=== PATIENT | male | born 1945 | race Asian ===

== ENCOUNTER 2022-02-25 11:02 | Inpatient (IN) | payer MEDICARE, OTHER ==
[~2022-02-25] VITALS: Ht 165.1 cm; Wt 72.6 kg
[2022-02-25] MEDS ORDERED: IV NORMAL SALINE 500 ML BAG IV ONE ×2 (11:15→14:15)
[2022-02-25] MEDS ORDERED: PIPERACILLIN SODIUM/TAZOBACTAM 3.375 G in IV DEXTROSE 5% 50 ML IV ONE (11:15)
[2022-02-25] MEDS ORDERED: IBUPROFEN 600 MG TABLET PO ONE (11:15)
[2022-02-25] MEDS ORDERED: VANCOMYCIN IV 1,000 MG in IV DEXTROSE 5% 250 ML IV ONE (11:15)
[2022-02-25] MEDS ORDERED: PIPERACILLIN/TAZOBACTAM/D5W 50 ML IV ONE (11:24)
[2022-02-25] MEDS ORDERED: VANCOMYCIN IV 200 ML ONE (11:24)
[2022-02-25] MEDS ORDERED: IBUPROFEN 800 MG TABLET ONE (11:24)
[2022-02-25 11:49] LABS: CARBON DIOXIDE 23 mmol/L (21-32); CHLORIDE 100 mmol/L (98-107); CREATININE 5.5 mg/dL (0.6-1.3); GLUCOSE 127 mg/dL (74-106); POTASSIUM 3.8 mmol/L (3.5-5.1); UREA NITROGEN, BLOOD 50 mg/dL (7-18)
[2022-02-25 12:02] LABS: ALANINE AMINOTRANSFERASE 12 U/L (16-63); ALKALINE PHOSPHATASE 262 U/L (50-136); ASPARTATE AMINOTRANSFERASE 47 U/L (15-37); BILIRUBIN,DIRECT 0.9 mg/dL (0.0-0.2); BILIRUBIN,TOTAL 1.2 mg/dL (0.2-1.0); TOTAL PROTEIN, SERUM 6.5 g/dL (6.4-8.2)
[2022-02-25 12:14] LABS: HEMATOCRIT 22.2 % (36.7-47.1); MEAN CORPUSCULAR HEMOGLOBIN 32.4 uug (23.8-33.4); PLATELET COUNT (AUTO) 110 K/uL (152-348)
--- NOTE | 2022-02-25 12:24 | NUR ---
urine obtained via straight catheterization, tolerated. urine sent to lab
[2022-02-25 12:43] LABS: ABG BASE EXCESS 0.1 mmol/L; ABG HCO3 24.7 mmol/L; ABG PCO2 40.1 mmHg (35.0-45.0); ABG PH 7.408 (7.350-7.450); ABG PO2 128.6 mmHg (75.0-100.0); ABG SITE LEFT RADIAL; ABG TOTAL HEMOGLOBIN 7.2 G/dL (13.5-18.0); MetHb 0.3 % (0.0-1.5); O2Hb 96.7 % (94.0-97.0); VENT MODE Nasal Cannula
[2022-02-25 12:47] LABS: *BLOOD, URINE 1+ (NEGATIVE); *CLARITY,URINE CLEAR (CLEAR); *COLOR,URINE YELLOW (YELLOW); *KETONES,URINE TRACE (NEGATIVE); *UROBILINOGEN,URINE 0.2 E.U./dl (NORMAL); LEUKOCYTE ESTERASE ,URINE NEGATIVE (NEGATIVE); NITRITE, URINE NEGATIVE (NEGATIVE); PH,URINE 5.5 (5.0-8.0); UGLUCOSE TRACE (NEGATIVE)
[2022-02-25 12:50] LABS: *BILIRUBIN,URIN 1+ (NEGATIVE)
[2022-02-25] MEDS ORDERED: ACETAMINOPHEN ES 500 MG TABLET PO ONE (13:30)
[2022-02-25] MEDS ORDERED: ACETAMINOPHEN ES 500 MG TABLET ONE (13:38)
[2022-02-25] MEDS ORDERED: ONDANSETRON 4 MG/2 ML VIAL IV PRN (14:30)
[2022-02-25] MEDS ORDERED: ACETAMINOPHEN 650 MG SUPP.RECT RC PRN (14:30)
[2022-02-25 14:48] LABS: BACTERIA,URINE FEW /HPF (NONE SEEN); SQUAMOUS EPITHELIAL CELL,UR FEW /HPF (NONE SEEN); WBC,URINE 0-3 /HPF (0-3)
[2022-02-25] MEDS ORDERED: NOREPINEPHRINE BITARTRATE 32 MG in IV NORMAL SALINE 218 ML IV PRN (15:00)
--- NOTE | 2022-02-25 15:19 | NUR ---
patient hypotensive, MD aware. orders for levophed to titrate. i am on orientation, we are severely short staffed, charge nurse is aware. No ICU nurse available to monitor patient.
[2022-02-25] MEDS ORDERED: LIDOCAINE 4% TP (15:48)
[2022-02-25] MEDS ORDERED: LEVO125T8 PO (15:48)
[2022-02-25] MEDS ORDERED: SEVE800T8 PO (15:48)
[2022-02-25] MEDS ORDERED: ACET-2154 PO (15:48)
[2022-02-25] MEDS ORDERED: FAMO-132 PO (15:48)
[2022-02-25] MEDS ORDERED: MELA3TAB41 PO (15:48)
[2022-02-25] MEDS ORDERED: POLY17PO4 PO (15:48)
[2022-02-25] MEDS ORDERED: HYDR-3972 PO (15:48)
[2022-02-25] MEDS ORDERED: INSU100V39 SQ (15:48)
[2022-02-25] MEDS ORDERED: PROP150T2 PO (15:48)
[2022-02-25] MEDS ORDERED: NEPRO PO (15:48)
[2022-02-25] MEDS ORDERED: CYCL5TAB PO (15:48)
[2022-02-25] MEDS ORDERED: HYDROCORTISONE PO (15:48)
[2022-02-25] MEDS ORDERED: ESCI5TAB PO (15:48)
[2022-02-25] MEDS ORDERED: PREG50CA PO (15:48)
[2022-02-25] MEDS ORDERED: ALPR1TAB7 PO (15:48)
[2022-02-25] MEDS ORDERED: AMIN30LI2 PO (15:48)
[2022-02-25] MEDS ORDERED: APIX2.5T PO (15:48)
--- NOTE | 2022-02-25 16:00 | NUR ---
pt observed to have pressure ulcer on right buttocks.
--- NOTE | 2022-02-25 16:09 | NUR ---
picc line inserted by picc nurse, stat cxr ordered and radiology called.
--- NOTE | 2022-02-25 16:54 | NUR ---
picc line verified and infusion running through picc line, tolerating. monitoring BP.
[2022-02-25 19:00] VITALS: BP 123/57
--- NOTE | 2022-02-25 19:20 | NUR ---
INCONT OF STOOL, RENDER PERICARE, AVERY LOOSE STOOL BROWNISH IN COLOR. SKIN TEAR TO SACRUM .1 CM X.2 CM .REPOSITION Q 2 HOURS AND SKIN KEPT WARM AND DRY.
--- NOTE | 2022-02-25 19:30 | NUR ---
OBTAINED REPORT FROM OUT GOING RN, PATIENT LETHARGIC, EASILY ARISE, CONFUSED TO PLACE AND TIME. VSS, NOT ON LEVOPHED AT THIS TIME, RENDER ORAL CARE AND VS Q 1 HOUR.RIGHT UA AV FISTULA POSITIVE BRUIT AND THRILL., B/P CUFF LEFT LE AND LEFT UPPER ARM WITH TRIPLE LUMEN PICC. O2 VIA N/C AT 2L/MIN.
--- NOTE | 2022-02-25 19:46 | NUR ---
hand off report given to Ana Paula VEE
[2022-02-25 20:00] VITALS: BP 151/70
[2022-02-25] MEDS ORDERED: PIPERACILLIN/TAZOBACTAM/D5W 50 ML ONE (20:25)
[2022-02-25] MEDS: PIPERACILLIN/TAZO 2.25 G in IV DEXTROSE 5% 50 ML IV SCH (20:30)
[2022-02-25 21:00] VITALS: BP 158/70
[2022-02-25 22:00] VITALS: BP 153/67
[2022-02-25] MEDS ORDERED: PIPERACILLIN SODIUM/TAZOBACTAM 3.375 G in IV DEXTROSE 5% 50 ML IV SCH (22:00)
--- NOTE | 2022-02-25 22:00 | NUR ---
TRANSFERRED FROM ED RM 5 TO ED RM 1 B. PER CM SR, NO DISTRESS NOTED, MAINTAIN SAFE ENVIRONMENT.
[2022-02-25 23:00] VITALS: BP 155/63
[2022-02-26] VITALS (10 sets, daily range): BP systolic 103–170; BP diastolic 38–70
--- NOTE | 2022-02-26 02:00 | NUR ---
AWAITING REGISTRATION TO TRANSITION PATIENT FOR DOCUMENTATION. ADMITTED SINCE 1436.
[2022-02-26] MEDS: PIPERACILLIN/TAZO 2.25 G in IV DEXTROSE 5% 50 ML IV SCH ×3 (03:52→21:45)
--- NOTE | 2022-02-26 04:00 | NUR ---
NO DISTRESS NOTED, MORE AWAKE AND ASKING IF HE WILL HAVE DIALYSIS TODAY. REASSURANCE PROVIDED.
--- NOTE | 2022-02-26 04:30 | NUR ---
CONTINUED ON ZOSYN IVPB.
--- NOTE | 2022-02-26 06:00 | NUR ---
BM LOOSE STOOL, RENDER PERICARE AND AM CARE PROVIDED, RENDER ORAL CARE AND PATIENT ASKING FOR BREAKFAST AND STATED THAT HE HAS NOT EATEN X 2 DAYS.
--- NOTE | 2022-02-26 07:15 | NUR ---
reiceved patient in stable condition from Ana Paula. pt no longer on levo drip, although is still CCU pt. spoke to regarding status and possibly downgrading, to see pt first. no new orders at this time.
[2022-02-26 07:30] LABS: HEMATOCRIT 21.2 % (36.7-47.1); MEAN CORPUSCULAR HEMOGLOBIN 32.5 uug (23.8-33.4); MEAN CORPUSCULAR VOLUME 99.1 fL (73.0-96.2); PLATELET COUNT (AUTO) 115 K/uL (152-348)
--- NOTE | 2022-02-26 07:30 | NUR ---
REPORT GIVEN TO INCOMING RN, NOTIFIED THAT PATIENT IS REQUESTING DIALYSIS TODAY, NEEDS AIR MATTRESS, NUTRITIONAL, DIETARY, AND WOUND CONSULT.VSS WITHOUT PRESSORS.
[2022-02-26 07:43] LABS: CARBON DIOXIDE 24 mmol/L (21-32); CHLORIDE 100 mmol/L (98-107); CREATININE 6.2 mg/dL (0.6-1.3); GLUCOSE 191 mg/dL (74-106); POTASSIUM 4.8 mmol/L (3.5-5.1); UREA NITROGEN, BLOOD 61 mg/dL (7-18)
[2022-02-26 07:49] LABS: ALANINE AMINOTRANSFERASE 16 U/L (16-63); ALKALINE PHOSPHATASE 200 U/L (50-136); ASPARTATE AMINOTRANSFERASE 32 U/L (15-37); BILIRUBIN,TOTAL 0.8 mg/dL (0.2-1.0); TOTAL PROTEIN, SERUM 6.3 g/dL (6.4-8.2)
--- NOTE | 2022-02-26 08:00 | NUR ---
Pt requires dialysis, i called office x4 and left voicemails x2. waiting for a call back. Charge nurse aware.
[2022-02-26 08:11] LABS: MAGNESIUM 2.1 mg/dL (1.8-2.4); PHOSPHOROUS 6.1 mg/dL (2.5-4.9); VANCOMYCIN,RANDOM 23.9 ug/mL (18.0-26.0)
--- NOTE | 2022-02-26 08:11 | NUR ---
spoke to and informed her of pt hgb/hct. no new orders.
[2022-02-26 08:20] LABS: THYROID STIMULATING HORMONE 2.542 mIU/mL (0.358-3.740)
[2022-02-26] MEDS ORDERED: PANTOPRAZOLE SODIUM 40 MG VIAL ONE (09:05)
[2022-02-26] MEDS: PANTOPRAZOLE SODIUM 40 MG VIAL IV SCH (09:11)
[2022-02-26] MEDS ORDERED: EPOETIN ALFA 10,000 UNITS/ML VIAL SQ ONE (09:30)
[2022-02-26] MEDS ORDERED: EPOETIN ALFA-EPBX 10,000 UNIT/ML VIAL SQ ONE (09:45)
--- NOTE | 2022-02-26 11:12 | NUR ---
spoke to [phone] (cell) regarding his patient who is a dialysis pt ESRD, asked if there had been arangements made to dialize pt today. stated he has already called in for dialysis and requsting i call him to follow up for timing in the next few hours.
--- NOTE | 2022-02-26 11:38 | NUR ---
paged for orders. waiting for call back. pt will need type/cross and chemistry for dialysis that will take place later today.
[2022-02-26] MEDS ORDERED: PIPERACILLIN/TAZOBACTAM/D5W 50 ML ONE ×2 (11:42→21:26)
[2022-02-26 13:00] LABS: CARBON DIOXIDE 24 mmol/L (21-32); CHLORIDE 101 mmol/L (98-107); CREATININE 6.3 mg/dL (0.6-1.3); GLUCOSE 157 mg/dL (74-106); POTASSIUM 4.8 mmol/L (3.5-5.1); UREA NITROGEN, BLOOD 63 mg/dL (7-18)
--- NOTE | 2022-02-26 13:00 | NUR ---
downgraded patient to telemetry. stable VS.
--- NOTE | 2022-02-26 13:00 | NUR ---
Spoke to regarding pt's dialysis- MD stated he messaged/spoke to dialysis and will be placing the order when he has access to a computer. Charge nurse made aware.
--- NOTE | 2022-02-26 14:18 | NUR ---
Da dialysis nurse called, states he will send a dialysis nurse from [facility] 1-2hrs. Charge nurse made aware.
[2022-02-26] MEDS ORDERED: Medication Not On Formulary EA (Cyclobenzaprine Hcl 5 MG) PO PRN (17:15)
[2022-02-26] MEDS: PROPAFENONE HCL 150 MG TABLET PO SCH (17:45)
[2022-02-26] MEDS: ALPRAZOLAM 0.5 MG TABLET PO SCH (18:31)
[2022-02-26] MEDS ORDERED: DEXTROSE 50% 50 ML DISP.SYRIN IV PRN (19:00)
--- NOTE | 2022-02-26 19:46 | NUR ---
report given to MARIUSZ Goss. pt in stable condition.
--- NOTE | 2022-02-26 20:48 | NUR ---
REPORT GIVEN TO DWAYNE VEE RECEIVING PATIENT ON TELE. VSS.NO DISTRESS NOTED.
[2022-02-26] MEDS ORDERED: Medication Not On Formulary EA (Escitalopram Oxalate (Lexapro) 1 TAB) PO SCH (21:00)
--- NOTE | 2022-02-26 21:05 | NUR ---
Patient was transferred from ER to telemetry unit Room 305. Admitted yesterday at the ER. Patient is a 76 years old male with Dx of Septic Shock and Respiratory failure. patient AAOx4. In no apparent distress. Denies any SOB. On O2 at 2LPm via NC in place. O2 sat at 96%. Dialysis site on right upper arm with dressing intact. PICC line on left upper and PIV on left hand intact and patent. NS on tele with HR of 84/min. Complain of neck pain and resolve with positioning. Other assessment done. Plan of care initiated. Safety measure initiated and call light within reached. Due meds given and taken. Continue to monitor.
--- NOTE | 2022-02-26 21:08 | NUR ---
Transported to 3rd floor via hospital bed.
[2022-02-26] MEDS: ESCITALOPRAM OXALATE 10 MG TABLET PO SCH (21:46)
[2022-02-26] MEDS: PREGABALIN 50 MG CAPSULE PO SCH (21:46)
[2022-02-26] MEDS: MELATONIN 3 MG TABLET PO SCH (21:46)
[2022-02-26] MEDS: BLOOD SUGAR DIAGNOSTIC 1 EACH STRIP VI SCH (21:55)
[2022-02-26] MEDS ORDERED: SODIUM BICARBONATE 8.4% 50 MEQ/50 ML DISP.SYRIN IV ONE (22:15)
[2022-02-27] VITALS (8 sets, daily range): BP systolic 90–159; BP diastolic 37–49
[2022-02-27] MEDS: ACETAMINOPHEN 325 MG TABLET PO PRN ×2 (01:18→12:53)
[2022-02-27] MEDS: PIPERACILLIN/TAZO 2.25 G in IV DEXTROSE 5% 50 ML IV SCH ×3 (04:02→20:17)
--- NOTE | 2022-02-27 05:26 | NUR ---
Patient slept well since admission. With occasional anxiety noted. Able to calm patient down with reassurance. No adverse effect noted from IV antibiotic. NSR on tele with HR of 93/min. Needs attended to and met. Safety measure maintained and call light within reached.
[2022-02-27] MEDS: LEVOTHYROXINE SODIUM 125 MCG TABLET PO SCH (06:01)
[2022-02-27] MEDS: BLOOD SUGAR DIAGNOSTIC 1 EACH STRIP VI SCH ×4 (06:32→20:18)
[2022-02-27 07:12] LABS: MEAN CORPUSCULAR HEMOGLOBIN 32.3 uug (23.8-33.4); MEAN CORPUSCULAR VOLUME 97.2 fL (73.0-96.2); PLATELET COUNT (AUTO) 120 K/uL (152-348)
[2022-02-27 07:21] LABS: ALANINE AMINOTRANSFERASE 17 U/L (16-63); ALKALINE PHOSPHATASE 144 U/L (50-136); ASPARTATE AMINOTRANSFERASE 23 U/L (15-37); BILIRUBIN,TOTAL 0.6 mg/dL (0.2-1.0); CARBON DIOXIDE 29 mmol/L (21-32); CHLORIDE 100 mmol/L (98-107); CREATININE 4.8 mg/dL (0.6-1.3); GLUCOSE 136 mg/dL (74-106); MAGNESIUM 1.9 mg/dL (1.8-2.4); PHOSPHOROUS 3.7 mg/dL (2.5-4.9); POTASSIUM 3.7 mmol/L (3.5-5.1); TOTAL PROTEIN, SERUM 5.9 g/dL (6.4-8.2); UREA NITROGEN, BLOOD 41 mg/dL (7-18)
--- NOTE | 2022-02-27 07:30 | NUR ---
Critical lab shirin reported. hgb 6.2 hct 18.8. notified. Addendum: 02/27/22 at 0909 by KENYETTA BYRD RN 0736- order BT 1 prbc. consent signed. prbc ordered. will f/u [facility].
[2022-02-27 07:34] LABS: HEMATOCRIT 18.8 % (36.7-47.1)
[2022-02-27] MEDS: ALPRAZOLAM 0.5 MG TABLET PO SCH ×3 (09:00→18:46)
[2022-02-27] MEDS: PROTEIN SUPPLEMENT (PROSTAT) 30 ML LIQUID PO SCH ×3 (09:00→18:46)
[2022-02-27] MEDS: PROPAFENONE HCL 150 MG TABLET PO SCH ×3 (09:00→20:18)
[2022-02-27] MEDS ORDERED: Medication Not On Formulary EA (Amino Acids/Protein Hydrolys (Pro-Stat Liquid) 30 ML) PO SCH (09:00)
[2022-02-27] MEDS: PANTOPRAZOLE SODIUM 40 MG VIAL IV SCH ×2 (09:00→12:51)
--- NOTE | 2022-02-27 09:00 | NUR ---
BT started with dialysis Addendum: 02/27/22 at 1306 by KENYETTA BYRD RN MORNING MED HELD. WILL GIVE AFTER DIALYSIS
--- NOTE | 2022-02-27 10:00 | NUR ---
BT completed. Pt tolerated BT well. No adverse reaction noted
[2022-02-27] MEDS: SEVELAMER CARBONATE 800 MG TABLET PO SCH ×2 (12:00→18:46)
[2022-02-27] MEDS: GLUCERNA SHAKE 237 ML CAN PO SCH ×2 (12:00→12:52)
--- NOTE | 2022-02-27 12:31 | NUR ---
WOUND CARE CONSULT: PT PRESENTS WITH SACRAL PRESSURE ULCER, PRESENT ON ADMISSION. NO NECROTIC TISSUE OR SIGN OF INFECTION NOTED. RECOMMENDATIONS MADE FOR WOUND CARE AND SKIN PROTECTION. DISCUSSED WITH NURSING STAFF. IN AGREEMENT WITH PLAN OF CARE. Addendum: 02/27/22 at 1233 by BRYSON DE SOUZA RN Amended: Links added.
[2022-02-27] MEDS ORDERED: VANCOMYCIN IV 500 MG in IV DEXTROSE 5% 100 ML IV ONE (14:00)
[2022-02-27] MEDS: INSULIN REGULAR, HUMAN 300 UNIT/3 ML VIAL SQ PRN ×2 (19:20→20:19)
--- NOTE | 2022-02-27 19:38 | NUR ---
Received patient lying comfortably in bed. In no apparent distress. No complain of pain or SOB. O2 at 2LPm via NC in place. NSR on tele with HR of80/min. PICC line on JACKIE and IV on left hand intact and patent. Needs assessed and attended to.Contact precaution in place. Safety measure initiated and call light within reached.
[2022-02-27] MEDS: ESCITALOPRAM OXALATE 10 MG TABLET PO SCH (20:17)
[2022-02-27] MEDS: MELATONIN 3 MG TABLET PO SCH (20:17)
[2022-02-27] MEDS: PREGABALIN 50 MG CAPSULE PO SCH (20:18)
[2022-02-28 00:14] VITALS: BP 96/46
[2022-02-28 04:20] VITALS: BP 127/55
[2022-02-28] MEDS: PIPERACILLIN/TAZO 2.25 G in IV DEXTROSE 5% 50 ML IV SCH (04:30)
--- NOTE | 2022-02-28 05:05 | NUR ---
No adverse effect noted from IV antibiotic. NSR on tele with HR of 74/min. Needs attended to and met. Safety measure maintained and call light within reached.
[2022-02-28] MEDS: LEVOTHYROXINE SODIUM 125 MCG TABLET PO SCH (06:04)
[2022-02-28 06:37] LABS: MEAN CORPUSCULAR HEMOGLOBIN 32.2 uug (23.8-33.4); PLATELET COUNT (AUTO) 123 K/uL (152-348)
[2022-02-28] MEDS ORDERED: VANCOMYCIN IV 500 MG in IV DEXTROSE 5% 100 ML IV PRN (06:45)
[2022-02-28 06:46] LABS: HEMATOCRIT 20.8 % (36.7-47.1)
[2022-02-28 06:48] LABS: CARBON DIOXIDE 29 mmol/L (21-32); CHLORIDE 100 mmol/L (98-107); CREATININE 4.3 mg/dL (0.6-1.3); GLUCOSE 105 mg/dL (74-106); MAGNESIUM 1.9 mg/dL (1.8-2.4); POTASSIUM 3.5 mmol/L (3.5-5.1); UREA NITROGEN, BLOOD 34 mg/dL (7-18); VANCOMYCIN,RANDOM 24.8 ug/mL (18.0-26.0)
[2022-02-28] MEDS: BLOOD SUGAR DIAGNOSTIC 1 EACH STRIP VI SCH ×4 (06:49→20:45)
--- NOTE | 2022-02-28 07:00 | NUR ---
CRITICAL LAB VALUE NOTED HGB 7.0. NOTIFIED
[2022-02-28 07:06] LABS: HEPATITIS B SURFACE AG Negative (Negative)
[2022-02-28] MEDS: PROTEIN SUPPLEMENT (PROSTAT) 30 ML LIQUID PO SCH ×2 (09:27→17:00)
[2022-02-28] MEDS: GLUCERNA SHAKE 237 ML CAN PO SCH (09:27)
[2022-02-28] MEDS: PROPAFENONE HCL 150 MG TABLET PO SCH ×2 (09:27→20:36)
[2022-02-28] MEDS: PANTOPRAZOLE SODIUM 40 MG VIAL IV SCH (09:27)
[2022-02-28] MEDS: SEVELAMER CARBONATE 800 MG TABLET PO SCH ×3 (09:27→18:12)
[2022-02-28] MEDS: ALPRAZOLAM 0.5 MG TABLET PO SCH ×2 (09:27→18:12)
[2022-02-28] MEDS ORDERED: JEVITY 1.2 1000 ML LIQUID GT PRN (10:45)
[2022-02-28 11:56] VITALS: BP 128/59
[2022-02-28] MEDS: INSULIN REGULAR, HUMAN 300 UNIT/3 ML VIAL SQ PRN (13:24)
--- NOTE | 2022-02-28 16:00 | NUR ---
DISTENDED ABDOMEN NOTED. MD NOTIFIED. ORDER BHARAT HOYOSSH. Addendum: 02/28/22 at 1904 by KENYETTA BYRD RN BHARAT CHOUDHURYED DONE. HELPS PATIENT ALITTLE BIT. PT STILL HAVE DISTENDED STOMACH
[2022-02-28 16:42] VITALS: BP 161/67
--- NOTE | 2022-02-28 19:04 | NUR ---
WOUND TX DONE. CLEAN AREA, PAT DRY, HYDROGEL AND COVER W/ MEPILEX
[2022-02-28 20:22] VITALS: BP 99/44
[2022-02-28] MEDS: ESCITALOPRAM OXALATE 10 MG TABLET PO SCH (20:34)
[2022-02-28] MEDS: PREGABALIN 50 MG CAPSULE PO SCH (20:35)
[2022-02-28] MEDS: MELATONIN 3 MG TABLET PO SCH (20:36)
[2022-03-01] VITALS (7 sets, daily range): BP systolic 104–139; BP diastolic 39–71
--- NOTE | 2022-03-01 05:32 | NUR ---
Pt slept through out the night. On 1LPM/NC sating at 100%. IV intact and patent. All needs attended. No respiratory distress noted. Aspiration and safety precautions maintained. Will endorse to incoming shift.
[2022-03-01] MEDS: LEVOTHYROXINE SODIUM 125 MCG TABLET PO SCH (06:05)
[2022-03-01 06:47] LABS: MEAN CORPUSCULAR HEMOGLOBIN 32.1 uug (23.8-33.4); MEAN CORPUSCULAR VOLUME 98.4 fL (73.0-96.2); PLATELET COUNT (AUTO) 131 K/uL (152-348)
[2022-03-01 07:02] LABS: ALANINE AMINOTRANSFERASE < 6 U/L (16-63); ALKALINE PHOSPHATASE 228 U/L (50-136); ASPARTATE AMINOTRANSFERASE 12 U/L (15-37); BILIRUBIN,TOTAL 1.1 mg/dL (0.2-1.0); CARBON DIOXIDE 29 mmol/L (21-32); CHLORIDE 98 mmol/L (98-107); CREATININE 5.5 mg/dL (0.6-1.3); GLUCOSE 96 mg/dL (74-106); PHOSPHOROUS 3.5 mg/dL (2.5-4.9); POTASSIUM 3.9 mmol/L (3.5-5.1); TOTAL PROTEIN, SERUM 6.2 g/dL (6.4-8.2); UREA NITROGEN, BLOOD 47 mg/dL (7-18)
[2022-03-01 07:05] LABS: HEMATOCRIT 19.7 % (36.7-47.1)
--- NOTE | 2022-03-01 07:15 | NUR ---
Received critical lab Hgb 6.4 from [facility]. aware. Will endorse to incoming RN.
[2022-03-01] MEDS: BLOOD SUGAR DIAGNOSTIC 1 EACH STRIP VI SCH ×4 (07:31→20:45)
--- NOTE | 2022-03-01 07:45 | NUR ---
notified for critical lab. will tranfused 1 prbc per standing order
[2022-03-01] MEDS: SEVELAMER CARBONATE 800 MG TABLET PO SCH ×3 (08:00→18:04)
--- NOTE | 2022-03-01 08:30 | NUR ---
Blood transfusion started 1 prbc. will monitor Addendum: 03/01/22 at 1516 by KENYETTA BYRD RN 1030 BT ends. pt tolerated transfusion well. no adverse reaction noted. pt asleep after
[2022-03-01] MEDS: ALPRAZOLAM 0.5 MG TABLET PO SCH ×2 (09:00→17:00)
[2022-03-01] MEDS: GLUCERNA SHAKE 237 ML CAN PO SCH (09:43)
[2022-03-01] MEDS: PROTEIN SUPPLEMENT (PROSTAT) 30 ML LIQUID PO SCH ×2 (09:43→17:00)
[2022-03-01] MEDS: PANTOPRAZOLE SODIUM 40 MG TABLET.DR PO SCH (09:43)
[2022-03-01] MEDS: PROPAFENONE HCL 150 MG TABLET PO SCH ×2 (09:43→20:39)
[2022-03-01 10:44] LABS: VANCOMYCIN,RANDOM 21.8 ug/mL (18.0-26.0)
[2022-03-01] MEDS: INSULIN REGULAR, HUMAN 300 UNIT/3 ML VIAL SQ PRN ×3 (12:02→20:48)
--- NOTE | 2022-03-01 13:00 | NUR ---
PT TOLERATED HEMODIALYSIS WELL.
--- NOTE | 2022-03-01 16:46 | NUR ---
PT IS SCHEDULED FOR Transesophageal Echocardiogram (MONIQUE) TOMORROW AT [facility] @1200 . AMBULANCE WILL UNIT TECHNICIAN PT @ 0800. F/U WITH
--- NOTE | 2022-03-01 18:34 | NUR ---
PT ATE 50% OF LUNCH AND DINNER MEAL W/ ASSIST. PT IS MORE LETHARGIC TODAY. AO X2-3. VITALS WNL. NO ACUTE DISTRESS NOTED. NO SOB. WILL ENDORSED TO NOC SHIFT
--- NOTE | 2022-03-01 19:34 | NUR ---
Received pt. in bed AAOX1. follows commands, PICC line to LUE patent. Will continue to monitor.
[2022-03-01] MEDS: PREGABALIN 50 MG CAPSULE PO SCH (20:38)
[2022-03-01] MEDS: MELATONIN 3 MG TABLET PO SCH (20:38)
[2022-03-01] MEDS: ESCITALOPRAM OXALATE 10 MG TABLET PO SCH (20:38)
[2022-03-02 00:18] VITALS: BP 126/51
[2022-03-02] MEDS: ACETAMINOPHEN 325 MG TABLET PO PRN (03:00)
[2022-03-02] MEDS: CYCLOBENZAPRINE HCL 10 MG TABLET PO PRN (03:00)
[2022-03-02 04:20] VITALS: BP 113/48
[2022-03-02] MEDS: LEVOTHYROXINE SODIUM 125 MCG TABLET PO SCH (06:13)
[2022-03-02] MEDS: BLOOD SUGAR DIAGNOSTIC 1 EACH STRIP VI SCH ×4 (06:30→20:47)
[2022-03-02 06:47] LABS: HEMATOCRIT 23.2 % (36.7-47.1); MEAN CORPUSCULAR HEMOGLOBIN 32.8 uug (23.8-33.4); MEAN CORPUSCULAR VOLUME 96.2 fL (73.0-96.2); PLATELET COUNT (AUTO) 136 K/uL (152-348)
[2022-03-02 06:56] LABS: CARBON DIOXIDE 29 mmol/L (21-32); CHLORIDE 99 mmol/L (98-107); CREATININE 4.1 mg/dL (0.6-1.3); GLUCOSE 70 mg/dL (74-106); MAGNESIUM 1.7 mg/dL (1.8-2.4); PHOSPHOROUS 3.6 mg/dL (2.5-4.9); POTASSIUM 3.6 mmol/L (3.5-5.1); UREA NITROGEN, BLOOD 30 mg/dL (7-18); VANCOMYCIN,RANDOM 16.8 ug/mL (18.0-26.0)
[2022-03-02] MEDS: SEVELAMER CARBONATE 800 MG TABLET PO SCH ×3 (08:00→17:59)
[2022-03-02] MEDS: PANTOPRAZOLE SODIUM 40 MG TABLET.DR PO SCH (08:00)
[2022-03-02] MEDS: GLUCERNA SHAKE 237 ML CAN PO SCH (09:00)
[2022-03-02] MEDS: PROPAFENONE HCL 150 MG TABLET PO SCH ×2 (09:00→20:47)
[2022-03-02] MEDS: ALPRAZOLAM 0.5 MG TABLET PO SCH ×2 (09:00→17:59)
[2022-03-02] MEDS: PROTEIN SUPPLEMENT (PROSTAT) 30 ML LIQUID PO SCH ×2 (09:00→17:58)
--- NOTE | 2022-03-02 09:00 | NUR ---
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
[2022-03-02 10:00] VITALS: BP 100/45
--- NOTE | 2022-03-02 11:54 | NUR ---
pt still in [facility] for MONIQUE, report given to Triston VEE ICU
[2022-03-02] MEDS ORDERED: VANCOMYCIN IV 500 MG in IV DEXTROSE 5% 100 ML IV ONE (16:00)
--- NOTE | 2022-03-02 16:30 | NUR ---
received a call from Daniel VEE ICU from [facility] - will be transferring pt soon via ambulance
--- NOTE | 2022-03-02 17:30 | NUR ---
back from [facility] per amado, awake and alert oriented x2, on 2l/nasal cannula-sat at 99%, tele- a-flutter 60-70's, no distress noted, BS taken 79- dinner tray served, needs attended and met, call light within reach
[2022-03-02 17:56] VITALS: BP 107/44
--- NOTE | 2022-03-02 19:04 | NUR ---
informed Dr Fraire of rhythm a flutter- with orders- will endorse to next shift
[2022-03-02 20:00] VITALS: BP 95/40
[2022-03-02] MEDS ORDERED: DILTIAZEM HCL 60 MG TABLET PO SCH (20:00)
--- NOTE | 2022-03-02 20:00 | NUR ---
Received patient lying in bed. AAOx2. In no acute distress. Gets easily anxious, reassurance given. Controlled A Flutter on tele with HR of 72/min. PICC line on left upper arm intact and patent. Right upper arm fistula with dressing intact. Needs assessed and attended to. Isolation precaution observed. Safety measure initiated and call light within reached.
--- NOTE | 2022-03-02 20:20 | NUR ---
Informed Dr. Fraire that patient BP wqas 92/38, HR 75 and patient has a dose of Cardizem 60mg due. Awaiting for any new order.
--- NOTE | 2022-03-02 20:35 | NUR ---
Another message sent to Dr. Fraire still no answer. Informed Dr. Lee regarding BP and Cardizem order and Dr. Pickard with order to decrease Cardizem to 30 mg every 8 hrs. Order noted and will carry out.
[2022-03-02] MEDS: MELATONIN 3 MG TABLET PO SCH (20:48)
[2022-03-02] MEDS: PREGABALIN 50 MG CAPSULE PO SCH (20:48)
[2022-03-02] MEDS: ESCITALOPRAM OXALATE 10 MG TABLET PO SCH (20:48)
[2022-03-02] MEDS: INSULIN REGULAR, HUMAN 300 UNIT/3 ML VIAL SQ PRN (20:50)
[2022-03-02] MEDS: DILTIAZEM HCL 30 MG TABLET PO SCH (21:12)
[2022-03-03] VITALS: BP 100/43
[2022-03-03] MEDS: CYCLOBENZAPRINE HCL 10 MG TABLET PO PRN (00:46)
[2022-03-03 04:00] VITALS: BP 104/45
--- NOTE | 2022-03-03 05:09 | NUR ---
AAOx2. In no acute distress. Controlled A Flutter on tele with HR of 70/min. PICC line on left upper arm intact and patent. Right upper arm fistula with dressing remains intact. Needs attended to and met. Isolation precaution maintained. Turned and reposition for comfort. Safety measure maintained and call light within reached.
[2022-03-03] MEDS: ACETAMINOPHEN 325 MG TABLET PO PRN (05:44)
[2022-03-03] MEDS: DILTIAZEM HCL 30 MG TABLET PO SCH ×3 (05:44→22:01)
[2022-03-03] MEDS: LEVOTHYROXINE SODIUM 125 MCG TABLET PO SCH (06:13)
[2022-03-03 06:54] LABS: HEMATOCRIT 24.1 % (36.7-47.1); MEAN CORPUSCULAR HEMOGLOBIN 31.7 uug (23.8-33.4); MEAN CORPUSCULAR VOLUME 95.8 fL (73.0-96.2); PLATELET COUNT (AUTO) 160 K/uL (152-348)
[2022-03-03 07:08] LABS: ALANINE AMINOTRANSFERASE 13 U/L (16-63); ALKALINE PHOSPHATASE 274 U/L (50-136); ASPARTATE AMINOTRANSFERASE 21 U/L (15-37); BILIRUBIN,TOTAL 1.2 mg/dL (0.2-1.0); CARBON DIOXIDE 28 mmol/L (21-32); CHLORIDE 99 mmol/L (98-107); CREATININE 5.4 mg/dL (0.6-1.3); GLUCOSE 89 mg/dL (74-106); MAGNESIUM 1.9 mg/dL (1.8-2.4); POTASSIUM 3.9 mmol/L (3.5-5.1); TOTAL PROTEIN, SERUM 6.1 g/dL (6.4-8.2); UREA NITROGEN, BLOOD 41 mg/dL (7-18); VANCOMYCIN,RANDOM 16.7 ug/mL (18.0-26.0)
[2022-03-03] MEDS: BLOOD SUGAR DIAGNOSTIC 1 EACH STRIP VI SCH ×4 (07:47→20:47)
[2022-03-03] MEDS: SEVELAMER CARBONATE 800 MG TABLET PO SCH ×3 (08:33→17:47)
[2022-03-03] MEDS: PANTOPRAZOLE SODIUM 40 MG TABLET.DR PO SCH (08:33)
[2022-03-03] MEDS: ALPRAZOLAM 0.5 MG TABLET PO SCH ×3 (09:00→17:50)
--- NOTE | 2022-03-03 09:00 | NUR ---
woke up fro breakfast and for PT-see notes, at first held xanax but more awake after eating and sitting up on bed with PT, gave xanax as ordered, informed of dialysis today, right arm swollen,elevated on pillow, right arm shunt with dsg, on 2l/nc sat at 99%, tele aflutter 54,left upper chest incision with sutures-dry and intact, safety precautions observed
[2022-03-03] MEDS: PROPAFENONE HCL 150 MG TABLET PO SCH ×2 (09:18→20:26)
[2022-03-03] MEDS: GLUCERNA SHAKE 237 ML CAN PO SCH (09:22)
[2022-03-03] MEDS: PROTEIN SUPPLEMENT (PROSTAT) 30 ML LIQUID PO SCH ×2 (09:22→17:44)
[2022-03-03] MEDS: MIRALAX 17 GM POWD.PACK PO PRN (09:49)
--- NOTE | 2022-03-03 10:27 | NUR ---
dialysis nurse at bedside
[2022-03-03] MEDS ORDERED: ALBUMIN HUMAN 25% 50 ML IV PRN (13:15)
[2022-03-03 13:54] VITALS: BP 113/46
--- NOTE | 2022-03-03 14:00 | NUR ---
HEMODIALYSIS DONE-bp 98/48, NO FLUID REMOVED, REPOSITIONED FOR LUNCH AND COMFORT
[2022-03-03] MEDS: MIDODRINE HCL 5 MG TABLET PO SCH ×2 (14:07→22:01)
[2022-03-03] MEDS ORDERED: VANCOMYCIN IV 500 MG in IV DEXTROSE 5% 100 ML IV ONE (15:00)
--- NOTE | 2022-03-03 16:28 | NUR ---
SW consult was requested for a patient on medsurg to evaluate goals of care. SW followed up with, case liner, Paul, and he stated he had spoke with patients niece/durable power of switchboard wire worker helper, Enma Meléndez ([phone]) and she stated that she is in agreement with recommendations for more aggressive treatment. computer security manager, Paul stated he spoke with Katie Castañeda NP and informed her of this information.
[2022-03-03 16:36] VITALS: BP 126/46
[2022-03-03] MEDS: INSULIN REGULAR, HUMAN 300 UNIT/3 ML VIAL SQ PRN ×2 (17:48→20:46)
--- NOTE | 2022-03-03 18:18 | NUR ---
resting in bed, no distress noted, tele -still aflutter 60's , dr Fraire informed and no orders given, all needs attended and met, call light within reach
[2022-03-03 20:00] VITALS: BP 111/44
[2022-03-03] MEDS ORDERED: DAPTOMYCIN 500 MG in IV NORMAL SALINE 50 ML IV SCH (20:00)
[2022-03-03] MEDS: MELATONIN 3 MG TABLET PO SCH (20:26)
[2022-03-03] MEDS: PREGABALIN 50 MG CAPSULE PO SCH (20:26)
[2022-03-03] MEDS: ESCITALOPRAM OXALATE 10 MG TABLET PO SCH (20:26)
[2022-03-04] VITALS: BP 107/45
[2022-03-04 04:00] VITALS: BP 119/50
--- NOTE | 2022-03-04 05:18 | NUR ---
Slept intermittently. Repositioned for comfort. No distress noted. Suctioned as needed. IV site intact. Will endorse to day shift.
[2022-03-04] MEDS: MIDODRINE HCL 5 MG TABLET PO SCH ×3 (05:34→22:24)
[2022-03-04] MEDS: DILTIAZEM HCL 30 MG TABLET PO SCH ×3 (05:34→22:25)
[2022-03-04] MEDS: LEVOTHYROXINE SODIUM 125 MCG TABLET PO SCH (06:07)
[2022-03-04] MEDS: BLOOD SUGAR DIAGNOSTIC 1 EACH STRIP VI SCH ×4 (06:36→21:08)
[2022-03-04 08:29] VITALS: BP 110/45
[2022-03-04] MEDS: PROTEIN SUPPLEMENT (PROSTAT) 30 ML LIQUID PO SCH ×2 (09:00→17:00)
[2022-03-04] MEDS ORDERED: CEFTAROLINE FOSAMIL ACETATE IV SCH (09:00)
[2022-03-04] MEDS ORDERED: DEXTROSE 5% IV SCH (09:00)
[2022-03-04] MEDS: SEVELAMER CARBONATE 800 MG TABLET PO SCH ×3 (09:10→17:45)
[2022-03-04] MEDS: ALPRAZOLAM 0.5 MG TABLET PO SCH ×2 (09:10→17:45)
[2022-03-04] MEDS: PANTOPRAZOLE SODIUM 40 MG TABLET.DR PO SCH (09:11)
[2022-03-04] MEDS: PROPAFENONE HCL 150 MG TABLET PO SCH ×2 (09:11→20:45)
[2022-03-04] MEDS: DEXTROSE 5% IV SCH ×2 (09:13→20:44)
[2022-03-04] MEDS: CEFTAROLINE FOSAMIL ACETATE IV SCH ×2 (09:13→20:44)
[2022-03-04] MEDS: GLUCERNA SHAKE 237 ML CAN PO SCH (09:15)
--- NOTE | 2022-03-04 09:15 | NUR ---
Received in bed awake. No acute distress noted. Continue on oxygen 1 L/M via NC saturating between 96 to 97%. JACKIE PICC line with [address] and flushing. BRODY AV Fistular in place. 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
[2022-03-04 11:17] VITALS: BP 108/48
[2022-03-04] MEDS: INSULIN REGULAR, HUMAN 300 UNIT/3 ML VIAL SQ PRN ×2 (12:19→17:47)
[2022-03-04 16:02] VITALS: BP 111/44
[2022-03-04 20:00] VITALS: BP 99/44
[2022-03-04] MEDS: MELATONIN 3 MG TABLET PO SCH (20:45)
[2022-03-04] MEDS: ESCITALOPRAM OXALATE 10 MG TABLET PO SCH (20:45)
[2022-03-04] MEDS: PREGABALIN 50 MG CAPSULE PO SCH (20:45)
[2022-03-05] VITALS: BP 140/54
[2022-03-05] MEDS: ACETAMINOPHEN 325 MG TABLET PO PRN (00:07)
[2022-03-05 04:00] VITALS: BP 109/45
--- NOTE | 2022-03-05 05:57 | NUR ---
Slept intermittently. No distress noted. Able to tolerate nectar thick liquids and puree. Suctioned as needed. IV site intact. Tolerated all medications given. Repositioned for comfort. Safety maintained throughout the shift. Will endorse to day shift.
[2022-03-05] MEDS: MIDODRINE HCL 5 MG TABLET PO SCH ×3 (06:16→22:00)
[2022-03-05] MEDS: DILTIAZEM HCL 30 MG TABLET PO SCH ×3 (06:18→21:57)
[2022-03-05] MEDS: LEVOTHYROXINE SODIUM 125 MCG TABLET PO SCH (06:18)
[2022-03-05] MEDS: BLOOD SUGAR DIAGNOSTIC 1 EACH STRIP VI SCH ×4 (06:31→21:33)
--- NOTE | 2022-03-05 07:49 | NUR ---
Awake, alert, able to verbalized needs "feeling cold". Warm blanket provided. O2 at 1 L/NC. Temp checked 98 F. Tele Atrial flutter 45-105
[2022-03-05] MEDS: SEVELAMER CARBONATE 800 MG TABLET PO SCH (08:37)
[2022-03-05] MEDS: PANTOPRAZOLE SODIUM 40 MG TABLET.DR PO SCH (08:37)
[2022-03-05] MEDS: PROPAFENONE HCL 150 MG TABLET PO SCH ×2 (08:37→20:25)
[2022-03-05] MEDS: ALPRAZOLAM 0.5 MG TABLET PO SCH ×2 (08:38→17:14)
[2022-03-05] MEDS: PROTEIN SUPPLEMENT (PROSTAT) 30 ML LIQUID PO SCH ×2 (08:40→17:15)
[2022-03-05] MEDS: GLUCERNA SHAKE 237 ML CAN PO SCH (08:41)
[2022-03-05] MEDS: MIRALAX 17 GM POWD.PACK PO PRN (08:42)
[2022-03-05] MEDS: DEXTROSE 5% IV SCH ×2 (09:05→21:00)
[2022-03-05] MEDS: CEFTAROLINE FOSAMIL ACETATE IV SCH ×2 (09:05→21:00)
--- NOTE | 2022-03-05 10:00 | NUR ---
PT at bedside, max assist, not able to ambulate
[2022-03-05 11:42] VITALS: BP 115/40
[2022-03-05] MEDS: SEVELAMER CARBONATE 800 MG POWD.PACK PO SCH ×4 (12:17→17:14)
[2022-03-05] MEDS: INSULIN REGULAR, HUMAN 300 UNIT/3 ML VIAL SQ PRN ×3 (12:20→21:34)
--- NOTE | 2022-03-05 13:00 | NUR ---
Sleeping not able to feed lunch and give medication, not able to fully stay awake.
--- NOTE | 2022-03-05 15:00 | NUR ---
Bed bath and wound care done. Repositioned comfortably. Secretions suctioned. Oral care done
[2022-03-05 15:45] VITALS: BP 116/35
--- NOTE | 2022-03-05 18:46 | NUR ---
High risk for aspirations even with puree and nectar thick, noted coughing and gargling after a few spoons of feeding. Poor po intake. O2 1L/NC maintained with O2 sat of 100%. Afebrile. Repositioned comfortably.
[2022-03-05] MEDS: MELATONIN 3 MG TABLET PO SCH (20:24)
[2022-03-05] MEDS: PREGABALIN 50 MG CAPSULE PO SCH (20:24)
[2022-03-05] MEDS: ESCITALOPRAM OXALATE 10 MG TABLET PO SCH (20:24)
[2022-03-05 20:33] VITALS: BP 101/48
[2022-03-05] MEDS: DAPTOMYCIN 500 MG in IV NORMAL SALINE 50 ML IV SCH (20:51)
[2022-03-06 00:26] VITALS: BP 99/35
[2022-03-06 04:38] VITALS: BP 101/39
[2022-03-06] MEDS: MIDODRINE HCL 5 MG TABLET PO SCH ×3 (06:00→22:00)
[2022-03-06] MEDS: DILTIAZEM HCL 30 MG TABLET PO SCH ×3 (06:00→22:07)
--- NOTE | 2022-03-06 06:24 | NUR ---
PATIENT ASLEEP IN BED. BP LOW, CARDIZEM HELD. UNABLE TO GIVE PO MEDS AT THIS TIME. PATIENT IS NOT AWAKE AND ALERT ENOUGH AT THIS TIME TO TAKE MEDICATIONS. PATIENT SOUNDS VERY CONGESTED. VERY HIGH RISK FOR ASPIRATION. NO RESP. DISTRESS NOTED. SPEECH EVALUATION ORDERS. SOCIAL WORKER AIDE AWARE. ALL NEEDS ATTENDED.
[2022-03-06] MEDS: LEVOTHYROXINE SODIUM 125 MCG TABLET PO SCH (06:27)
[2022-03-06] MEDS: BLOOD SUGAR DIAGNOSTIC 1 EACH STRIP VI SCH ×4 (06:47→21:59)
[2022-03-06] MEDS: SEVELAMER CARBONATE 800 MG POWD.PACK PO SCH ×3 (08:00→17:04)
[2022-03-06] MEDS: PANTOPRAZOLE SODIUM 40 MG TABLET.DR PO SCH (08:00)
[2022-03-06] MEDS: PROTEIN SUPPLEMENT (PROSTAT) 30 ML LIQUID PO SCH ×2 (09:00→16:46)
[2022-03-06] MEDS: ALPRAZOLAM 0.5 MG TABLET PO SCH ×2 (09:00→16:49)
[2022-03-06] MEDS: GLUCERNA SHAKE 237 ML CAN PO SCH (09:00)
[2022-03-06] MEDS: CEFTAROLINE FOSAMIL ACETATE IV SCH ×2 (09:09→20:56)
[2022-03-06] MEDS: DEXTROSE 5% IV SCH ×2 (09:09→20:56)
[2022-03-06] MEDS: PROPAFENONE HCL 150 MG TABLET PO SCH ×2 (09:44→22:00)
[2022-03-06 11:25] VITALS: BP 122/51
--- NOTE | 2022-03-06 12:03 | NUR ---
administered important medications only, patient is gurgling, and coughing while swallowing, high risk for aspiration, strictly aspirations precautions are followed, continue to monitor. Addendum: 03/07/22 at 0732 by NADIRA AZUL RN, RN swallow assessment performed, able to swallow crush medications with small amount of apple sauce, while sitting upright position without coughing.
[2022-03-06] MEDS: INSULIN REGULAR, HUMAN 300 UNIT/3 ML VIAL SQ PRN ×3 (12:36→22:04)
[2022-03-06 15:43] VITALS: BP 118/46
--- NOTE | 2022-03-06 17:10 | NUR ---
ID DR STEWARD IS AWARE ABOUT PATIENT BLOOD CULTURE RESULT WITH GRAM POSITIVE COCCI
--- NOTE | 2022-03-06 17:21 | NUR ---
Suctioned patient as needed, tolerated oral medications crush with apple sauce, strict aspiration precautions followed, continue to monitor.
[2022-03-06 20:26] VITALS: BP 133/70
[2022-03-06] MEDS: ESCITALOPRAM OXALATE 10 MG TABLET PO SCH (22:00)
[2022-03-06] MEDS: PREGABALIN 50 MG CAPSULE PO SCH (22:00)
[2022-03-06] MEDS: MELATONIN 3 MG TABLET PO SCH (22:01)
[2022-03-07 00:20] VITALS: BP 139/48
[2022-03-07] MEDS: CEFTAROLINE FOSAMIL ACETATE IV SCH ×2 (00:22→08:57)
[2022-03-07] MEDS: DEXTROSE 5% IV SCH ×2 (00:22→08:57)
[2022-03-07 04:43] VITALS: BP 139/46
[2022-03-07] MEDS: MIDODRINE HCL 5 MG TABLET PO SCH ×3 (06:00→22:14)
--- NOTE | 2022-03-07 06:00 | NUR ---
Patient rested well in between care; hourly rounding done; repositioned q2h; AM care done; suctioned oral secretions; on and off anxious, reassurance given; continue to monitor; continue plan of care.
[2022-03-07] MEDS: DILTIAZEM HCL 30 MG TABLET PO SCH ×3 (06:06→22:18)
[2022-03-07] MEDS: LEVOTHYROXINE SODIUM 125 MCG TABLET PO SCH (06:10)
[2022-03-07] MEDS: BLOOD SUGAR DIAGNOSTIC 1 EACH STRIP VI SCH ×4 (06:34→22:30)
[2022-03-07] MEDS: SEVELAMER CARBONATE 800 MG POWD.PACK PO SCH ×3 (08:00→17:12)
[2022-03-07] MEDS: PANTOPRAZOLE SODIUM 40 MG TABLET.DR PO SCH (08:00)
--- NOTE | 2022-03-07 08:00 | NUR ---
RECEIVED PATIENT AWAKE BUT CONFUSED X3 NOTED PRODUCTIVE COUGH BUT UNABLE TO EXPECTORATE, ROUTINE SUCTIONING AND ORAL CARE DONE. SLIGHT SOB ON EXERTION ON 1L NC SATURATING 92%. FIB FLUTTER ON MONITOR
[2022-03-07] MEDS: GLUCERNA SHAKE 237 ML CAN PO SCH (08:58)
[2022-03-07] MEDS: PROTEIN SUPPLEMENT (PROSTAT) 30 ML LIQUID PO SCH ×2 (08:58→15:57)
[2022-03-07] MEDS: PROPAFENONE HCL 150 MG TABLET PO SCH ×2 (09:00→22:25)
[2022-03-07] MEDS: ALPRAZOLAM 0.5 MG TABLET PO SCH ×3 (09:00→17:00)
--- NOTE | 2022-03-07 10:00 | NUR ---
SEEN BY DR GARCÍA FOR FOLLOW-UP SEE NOTES
--- NOTE | 2022-03-07 10:45 | NUR ---
CONSTANTLY MOANING WITH ON AND OFF COUGHING. ORAL SUCTIONING DONE WITH THICK WHITISH SECRETION. HOB ELEVATED 45 DEGREES. WOUND CARE AND AM CARE DONE
[2022-03-07 11:11] VITALS: BP 131/46
[2022-03-07] MEDS: INSULIN REGULAR, HUMAN 300 UNIT/3 ML VIAL SQ PRN (11:56)
[2022-03-07 16:03] VITALS: BP 99/45
--- NOTE | 2022-03-07 17:13 | NUR ---
XANAX NOT GIVEN, TOO CLOSE FROM NEXT DOSE, PATIENT REFUSED INSULIN SS
[2022-03-07 20:17] VITALS: BP 145/46
[2022-03-07] MEDS: DAPTOMYCIN 500 MG in IV NORMAL SALINE 50 ML IV SCH (21:48)
[2022-03-07] MEDS: PREGABALIN 50 MG CAPSULE PO SCH (22:11)
[2022-03-07] MEDS: MELATONIN 3 MG TABLET PO SCH (22:19)
[2022-03-07] MEDS: ESCITALOPRAM OXALATE 10 MG TABLET PO SCH (22:21)
[2022-03-08 00:18] VITALS: BP 143/61
[2022-03-08 04:17] VITALS: BP 139/48
[2022-03-08] MEDS: DILTIAZEM HCL 30 MG TABLET PO SCH ×3 (06:53→21:38)
[2022-03-08] MEDS: LEVOTHYROXINE SODIUM 125 MCG TABLET PO SCH (06:58)
[2022-03-08] MEDS: MIDODRINE HCL 5 MG TABLET PO SCH ×3 (07:00→21:04)
[2022-03-08] MEDS: BLOOD SUGAR DIAGNOSTIC 1 EACH STRIP VI SCH ×4 (07:07→21:38)
[2022-03-08] MEDS: PANTOPRAZOLE SODIUM 40 MG TABLET.DR PO SCH (08:00)
[2022-03-08] MEDS: SEVELAMER CARBONATE 800 MG POWD.PACK PO SCH ×3 (08:00→17:33)
--- NOTE | 2022-03-08 08:00 | NUR ---
Received in bed awake noted with some gurgling sounds. Suctioned orally but with poor coughing reflex. Gently oral care done. Repositioned prn. On 1 Lpm nc no sob satting 93%. Aflutter on telemetry. Cont to monitor.
--- NOTE | 2022-03-08 08:20 | NUR ---
Seen and examined by Dr. Ba, updated. No new order received.
[2022-03-08] MEDS: PROTEIN SUPPLEMENT (PROSTAT) 30 ML LIQUID PO SCH ×2 (09:00→17:00)
[2022-03-08] MEDS: PROPAFENONE HCL 150 MG TABLET PO SCH ×2 (09:00→21:05)
[2022-03-08] MEDS: ALPRAZOLAM 0.5 MG TABLET PO SCH ×2 (09:00→17:00)
[2022-03-08] MEDS: GLUCERNA SHAKE 237 ML CAN PO SCH (09:00)
[2022-03-08] MEDS: CEFTAROLINE FOSAMIL ACETATE IV SCH ×2 (09:28→21:01)
[2022-03-08] MEDS: DEXTROSE 5% IV SCH ×2 (09:28→21:01)
--- NOTE | 2022-03-08 09:28 | NUR ---
Patient alert and responsive, trying to talk. Started to give meds but patient started coughing and was stopped d/t high risk for aspiration. Dr. Ba was made aware and that pt had poor po intake during breakfast. Will cont to observe.
[2022-03-08 11:34] VITALS: BP 150/56
[2022-03-08] MEDS: INSULIN REGULAR, HUMAN 300 UNIT/3 ML VIAL SQ PRN ×2 (11:36→21:41)
--- NOTE | 2022-03-08 15:02 | NUR ---
Bed bath, wound care done, first step mattress put in. Patient wakes briefly but goes back to sleep. Suctioned prn. Kept comfortable.
[2022-03-08 15:37] VITALS: BP 145/48
--- NOTE | 2022-03-08 16:59 | NUR ---
Seen and examined by Dr. Mitchell with order for labs in am noted.
--- NOTE | 2022-03-08 17:33 | NUR ---
insulin not given. pt refusing to eat
[2022-03-08 20:19] VITALS: BP 110/35
--- NOTE | 2022-03-08 21:00 | NUR ---
due antibiotic scan and given via the left upper arm piccline .all ports flushed and patent .
[2022-03-08] MEDS: ESCITALOPRAM OXALATE 10 MG TABLET PO SCH (21:01)
[2022-03-08] MEDS: PREGABALIN 50 MG CAPSULE PO SCH (21:02)
[2022-03-08] MEDS: MELATONIN 3 MG TABLET PO SCH (21:02)
--- NOTE | 2022-03-08 21:38 | NUR ---
fingerstick done patient blood sugar 130 , no insulin given .
--- NOTE | 2022-03-08 21:38 | NUR ---
patient awake ,alert able to answer simple questions ,infomred that he has some medication to take asked if he can swallow he said yes he can .crushed medication and mixed with applesauce patient took medication with applesauce hob up .assisted with medication.
--- NOTE | 2022-03-08 23:30 | NUR ---
reposition patient with the help of lining presser , offloaded back with pillows and extremities up with pillows . reoriented patient to time and placed , he verbalized he wants to get up and walk . call light placed with in reach and advised to call for assistance and not to get oob by self .
--- NOTE | 2022-03-08 23:54 | NUR ---
repository therapist at b/s as per respiratory therapist patient need deep suctioning her sound congested and coarse gurgling breath sounds and diminished at the bases . assisted with suctioning suction patient via orally and nasally , obtained whitish to yellowish thin to thin secretions . oral care done . hob up . call light placed at the b/s and advised patient to call for assistance .
[2022-03-09 00:35] VITALS: BP 136/44
--- NOTE | 2022-03-09 04:30 | NUR ---
help airline customer service agent with am care patient very weak to help in turning and reposition changed soiled linens and gown . patient incontinent of stool with moderate bm soft brownish in color . turned and reposition patient offloaded extremities with pillow . hob
[2022-03-09 04:43] VITALS: BP 106/34
[2022-03-09] MEDS: DILTIAZEM HCL 30 MG TABLET PO SCH ×3 (05:35→23:47)
[2022-03-09] MEDS: MIDODRINE HCL 5 MG TABLET PO SCH ×3 (05:36→22:00)
[2022-03-09] MEDS: LEVOTHYROXINE SODIUM 125 MCG TABLET PO SCH (06:03)
[2022-03-09] MEDS: BLOOD SUGAR DIAGNOSTIC 1 EACH STRIP VI SCH ×3 (06:30→16:41)
[2022-03-09 06:32] LABS: HEMATOCRIT 25.5 % (36.7-47.1); MEAN CORPUSCULAR HEMOGLOBIN 31.1 uug (23.8-33.4); MEAN CORPUSCULAR VOLUME 95.2 fL (73.0-96.2); PLATELET COUNT (AUTO) 158 K/uL (152-348)
--- NOTE | 2022-03-09 06:36 | NUR ---
fingerstick done results 136 , will endorsed to day shift RN . patient took medication with applesauce .
[2022-03-09 06:42] LABS: ALANINE AMINOTRANSFERASE 10 U/L (16-63); ALKALINE PHOSPHATASE 184 U/L (50-136); ASPARTATE AMINOTRANSFERASE 27 U/L (15-37); BILIRUBIN,TOTAL 0.7 mg/dL (0.2-1.0); CARBON DIOXIDE 27 mmol/L (21-32); CHLORIDE 94 mmol/L (98-107); CREATININE 7.3 mg/dL (0.6-1.3); GLUCOSE 131 mg/dL (74-106); PHOSPHOROUS 7.3 mg/dL (2.5-4.9); POTASSIUM 4.4 mmol/L (3.5-5.1); TOTAL PROTEIN, SERUM 6.4 g/dL (6.4-8.2); UREA NITROGEN, BLOOD 72 mg/dL (7-18)
[2022-03-09] MEDS: INSULIN REGULAR, HUMAN 300 UNIT/3 ML VIAL SQ PRN ×3 (09:11→16:42)
[2022-03-09] MEDS: PANTOPRAZOLE SODIUM 40 MG TABLET.DR PO SCH (09:12)
[2022-03-09] MEDS: SEVELAMER CARBONATE 800 MG POWD.PACK PO SCH ×3 (09:12→18:00)
[2022-03-09] MEDS: PROTEIN SUPPLEMENT (PROSTAT) 30 ML LIQUID PO SCH ×2 (09:13→16:44)
[2022-03-09] MEDS: PROPAFENONE HCL 150 MG TABLET PO SCH ×2 (09:13→23:43)
[2022-03-09] MEDS: NEPRO (VANILLA) 237 ML CAN PO SCH (09:13)
[2022-03-09] MEDS: ALPRAZOLAM 0.5 MG TABLET PO SCH ×2 (09:15→16:44)
[2022-03-09] MEDS: CEFTAROLINE FOSAMIL ACETATE IV SCH ×2 (09:15→23:41)
[2022-03-09] MEDS: DEXTROSE 5% IV SCH ×2 (09:15→23:41)
[2022-03-09 11:30] VITALS: BP 102/40
--- NOTE | 2022-03-09 13:38 | NUR ---
Per ST, keep patient on NPO at this time. Patient will be reevaluated tomorrow am. made aware.
--- NOTE | 2022-03-09 13:41 | NUR ---
Per Ultrasound, will be here in an hour for the order.
[2022-03-09 16:00] VITALS: BP 107/53
--- NOTE | 2022-03-09 18:45 | NUR ---
Suctioned prn, no distress identified. No other concern identified during the shift. will endorse for continuity of care.
[2022-03-09 20:26] VITALS: BP 108/40
--- NOTE | 2022-03-09 23:00 | NUR ---
CXR done results cardiomegally need to advance NGT, right lower effusion, notifyd DR Ba, advance NGT 4 inches, check for placement, and aspiration with yellow small fluid obtained, will start NGT feeding as ordered.
[2022-03-09] MEDS: DAPTOMYCIN 500 MG in IV NORMAL SALINE 50 ML IV SCH (23:40)
[2022-03-09] MEDS: MELATONIN 3 MG TABLET PO SCH (23:42)
[2022-03-09] MEDS: PREGABALIN 50 MG CAPSULE PO SCH (23:42)
[2022-03-09] MEDS: ESCITALOPRAM OXALATE 10 MG TABLET PO SCH (23:43)
--- NOTE | 2022-03-10 | NUR ---
S/P dialysis taken out 1,300 liters tolerate well, BP stable, Albumin was not given by microfilm operator nurse. NGT was advance 4 inches as mentioned earlier, recheck for placement, and aspiration of small yellow color fluid, start NGT glucerna at 30cc per hour, no vomiting noted, no choking no coughting noted, kept hob elevate 40 degrees. ngt tolerate well, cont to monitor.
[2022-03-10 00:14] VITALS: BP 109/52
[2022-03-10] MEDS: BLOOD SUGAR DIAGNOSTIC 1 EACH STRIP VI SCH ×5 (00:37→20:17)
[2022-03-10 04:10] VITALS: BP 108/36
--- NOTE | 2022-03-10 04:46 | NUR ---
Patient pulled out his NGT, tries to insert a new one, but patient refused, stated "I cannot breath with the tube". reorient patient but strongly refused, state "I don't want it... it hurt so much", patient awake verbalized his wishes, cont to monitor.
[2022-03-10] MEDS: MIDODRINE HCL 5 MG TABLET PO SCH ×3 (06:00→21:33)
[2022-03-10] MEDS: DILTIAZEM HCL 30 MG TABLET PO SCH ×3 (06:00→21:32)
[2022-03-10] MEDS: LEVOTHYROXINE SODIUM 125 MCG TABLET PO SCH (07:00)
--- NOTE | 2022-03-10 07:00 | NUR ---
Patient asleep but arousable, no sob no chest pain, denies pain at this time, continue to refused NGT, BS 104, kept clean and dry and comfortable, remains npo.
[2022-03-10] MEDS: SEVELAMER CARBONATE 800 MG POWD.PACK PO SCH ×3 (08:00→18:00)
[2022-03-10] MEDS: PANTOPRAZOLE SODIUM 40 MG TABLET.DR PO SCH (08:00)
[2022-03-10] MEDS: PROPAFENONE HCL 150 MG TABLET PO SCH ×2 (09:00→20:08)
[2022-03-10] MEDS: PROTEIN SUPPLEMENT (PROSTAT) 30 ML LIQUID PO SCH ×2 (09:00→17:00)
[2022-03-10] MEDS: ALPRAZOLAM 0.5 MG TABLET PO SCH ×2 (09:00→17:00)
[2022-03-10] MEDS: NEPRO (VANILLA) 237 ML CAN PO SCH (09:00)
[2022-03-10] MEDS: DEXTROSE 5% IV SCH ×2 (09:47→20:20)
[2022-03-10] MEDS: CEFTAROLINE FOSAMIL ACETATE IV SCH ×2 (09:47→20:20)
[2022-03-10 11:30] VITALS: BP 106/36
--- NOTE | 2022-03-10 14:18 | NUR ---
ORDERED G-TUBE PLACEMENT FOR NUTRITION. CALLED FAMILY TO EXPLAIN THE PROCEDURE. CONSN Addendum: 03/10/22 at 1422 by KENYETTA BYRD RN TELEPHONE CONSENT WAS OBTAINED FROM TRISTAN CRAIN.
--- NOTE | 2022-03-10 14:22 | NUR ---
EGD WITH PERCUTANEOUS ENDOSCOPIC GASTROSTOMY TUBE PLACEMENT IS SCHEDULED AT 1800. OR WILL RESTAURANT MAINTENANCE TECHNICIAN PT AT 0822
[2022-03-10 16:00] VITALS: BP 127/41
--- NOTE | 2022-03-10 16:00 | NUR ---
PROCEDURE CANCELLED. PT REFUSED THE PROCEDURE. DPOA WAS NOTIFIED AND TALK TO THE PT. DPOA WANT TO HONOR THE WISH OF THE PT NOT TO DO THE PROCEDURE. MD WAS NOTIFIED. SURGEON WAS NOTIFIED.
--- NOTE | 2022-03-10 18:32 | NUR ---
PT STILL ON NPO. PT STATES "HES HUNGRY" WAS NOTIFIED. Addendum: 03/10/22 at 1834 by KENYETTA BYRD RN PENDING SWALLOW JOHANN. ORDERED NGT. PT REFUSED NGT. NOTIFIED.
--- NOTE | 2022-03-10 19:30 | NUR ---
Received patient lying comfortably asleep but arouse to verbal stimuli. Remains AOx3. In no apparent distress. No complain of pain or SOB. O2 at 2LPm via NC in place. O2 sat at 98%. NPO status. PICC line on JACKIE intact and patent. Needs assessed and attended to. Contact precaution observed. Safety measure initiated and call light within reached.
[2022-03-10 20:00] VITALS: BP 151/50
[2022-03-10] MEDS: PREGABALIN 50 MG CAPSULE PO SCH (20:08)
[2022-03-10] MEDS: ESCITALOPRAM OXALATE 10 MG TABLET PO SCH (20:08)
[2022-03-10] MEDS: MELATONIN 3 MG TABLET PO SCH (20:08)
[2022-03-10] MEDS: INSULIN REGULAR, HUMAN 300 UNIT/3 ML VIAL SQ PRN (20:18)
[2022-03-11 04:00] VITALS: BP 125/51
--- NOTE | 2022-03-11 05:50 | NUR ---
Slept well during the night. In no apparent distress. No SOB noted. Suction secretions PRN and able to obtain small amount of thick whitish secretions. Remains on NPO status. Turned and repositioned for comfort.
[2022-03-11] MEDS: MIDODRINE HCL 5 MG TABLET PO SCH ×3 (06:00→21:01)
[2022-03-11] MEDS: DILTIAZEM HCL 30 MG TABLET PO SCH ×3 (06:00→21:00)
[2022-03-11] MEDS: LEVOTHYROXINE SODIUM 125 MCG TABLET PO SCH (06:11)
[2022-03-11 06:22] LABS: HEMATOCRIT 25.7 % (36.7-47.1); MEAN CORPUSCULAR HEMOGLOBIN 31.5 uug (23.8-33.4); MEAN CORPUSCULAR VOLUME 95.9 fL (73.0-96.2); PLATELET COUNT (AUTO) 115 K/uL (152-348)
[2022-03-11] MEDS: BLOOD SUGAR DIAGNOSTIC 1 EACH STRIP VI SCH ×4 (06:31→21:13)
[2022-03-11 07:15] LABS: CARBON DIOXIDE 28 mmol/L (21-32); CHLORIDE 95 mmol/L (98-107); CREATININE 6.4 mg/dL (0.6-1.3); GLUCOSE 104 mg/dL (74-106); POTASSIUM 4.5 mmol/L (3.5-5.1); UREA NITROGEN, BLOOD 61 mg/dL (7-18)
[2022-03-11] MEDS: SEVELAMER CARBONATE 800 MG POWD.PACK PO SCH ×3 (08:00→18:08)
[2022-03-11] MEDS ORDERED: ACETAMINOPHEN 650 MG SUPP.RECT RC PRN (09:00)
[2022-03-11] MEDS: PROTEIN SUPPLEMENT (PROSTAT) 30 ML LIQUID PO SCH ×2 (09:00→17:00)
[2022-03-11] MEDS: PROPAFENONE HCL 150 MG TABLET PO SCH ×2 (09:00→20:59)
[2022-03-11] MEDS: ALPRAZOLAM 0.5 MG TABLET PO SCH ×2 (09:00→17:00)
[2022-03-11] MEDS: NEPRO (VANILLA) 237 ML CAN PO SCH (09:00)
--- NOTE | 2022-03-11 09:30 | NUR ---
SPEECH THERAPY EVAL DONE. ST TALKED TO MD REGARDING PT. MD CHANGED PT DIET TO PUREED DIET. ST ADVISED TO FEED PT SLOWLY TO PREVENT ASPIRATION.
[2022-03-11] MEDS: PANTOPRAZOLE SODIUM 40 MG VIAL IV SCH (09:41)
[2022-03-11] MEDS: DEXTROSE 5% IV SCH ×2 (09:44→21:00)
[2022-03-11] MEDS: CEFTAROLINE FOSAMIL ACETATE IV SCH ×2 (09:44→21:00)
--- NOTE | 2022-03-11 10:30 | NUR ---
PT HAVING DIALYSIS. HOLD MEDS. WILL GIVE IT AFTER HD.
[2022-03-11 11:30] VITALS: BP 116/33
--- NOTE | 2022-03-11 13:20 | NUR ---
DIALYSIS DONE. TOOK OUT 1.2L DIALYSATE. TEACHING SUPERVISOR ASSIST CLIENT ON LUNCH. CLIENT ATE 30% OF THE MEAL AND 1 BOTTLE OF ENSURE. NO ASPIRATON NOTED. NO SOB NOTED. MEDS AND SUPPLEMENT GIVEN.
--- NOTE | 2022-03-11 14:00 | NUR ---
WOUND TREATMENT DONE ON COCCYX AREA. APPLY HYDRO GEL AND MEPILEX TO PROTECT SKIN.
[2022-03-11 16:00] VITALS: BP 127/46
--- NOTE | 2022-03-11 18:00 | NUR ---
PT SLEEPING ON BED. BUT EASILY AROUSABLE. ATE 30% OF HIS DINNER AND A BOTTLE OF ENSURE. NO ASPIRATION NOTED. NO SOB OR PAIN COMPLAIN. OCCASIONAL SUCTION DONE. WILL ENDORSED TO NOC SHIFT.
[2022-03-11 20:00] VITALS: BP 122/58
[2022-03-11] MEDS: DAPTOMYCIN 500 MG in IV NORMAL SALINE 50 ML IV SCH (20:09)
[2022-03-11] MEDS: ESCITALOPRAM OXALATE 10 MG TABLET PO SCH (20:58)
[2022-03-11] MEDS: MELATONIN 3 MG TABLET PO SCH (20:59)
[2022-03-11] MEDS: PREGABALIN 50 MG CAPSULE PO SCH (20:59)
[2022-03-11] MEDS: INSULIN REGULAR, HUMAN 300 UNIT/3 ML VIAL SQ PRN (21:21)
[2022-03-11] MEDS: CYCLOBENZAPRINE HCL 10 MG TABLET PO PRN (23:13)
[2022-03-12 04:00] VITALS: BP 130/75
--- NOTE | 2022-03-12 06:07 | NUR ---
Slept throughout the night. PICC line intact. BRODY AV fistula intact. Pt anuric, had bowel movement. No distress noted. Able to answer simple questions. Safety maintained will endorse to day shift.
[2022-03-12] MEDS: LEVOTHYROXINE SODIUM 125 MCG TABLET PO SCH (06:28)
[2022-03-12] MEDS: MIDODRINE HCL 5 MG TABLET PO SCH ×4 (06:29→17:17)
[2022-03-12] MEDS: DILTIAZEM HCL 30 MG TABLET PO SCH ×2 (06:29→13:21)
[2022-03-12] MEDS: BLOOD SUGAR DIAGNOSTIC 1 EACH STRIP VI SCH ×3 (06:32→16:10)
[2022-03-12 06:52] LABS: HEMATOCRIT 24.4 % (36.7-47.1); MEAN CORPUSCULAR HEMOGLOBIN 31.3 uug (23.8-33.4); MEAN CORPUSCULAR VOLUME 95.6 fL (73.0-96.2); PLATELET COUNT (AUTO) 91 K/uL (152-348)
[2022-03-12 07:05] LABS: CARBON DIOXIDE 31 mmol/L (21-32); CHLORIDE 96 mmol/L (98-107); CREATININE 5.1 mg/dL (0.6-1.3); GLUCOSE 87 mg/dL (74-106); POTASSIUM 4.5 mmol/L (3.5-5.1); UREA NITROGEN, BLOOD 44 mg/dL (7-18)
[2022-03-12] MEDS ORDERED: HYDROCODONE/APAP 5-325MG TABLET PO PRN (07:15)
[2022-03-12] MEDS: SEVELAMER CARBONATE 800 MG POWD.PACK PO SCH ×2 (08:08→11:31)
[2022-03-12] MEDS: PROPAFENONE HCL 150 MG TABLET PO SCH (08:08)
[2022-03-12] MEDS: PANTOPRAZOLE SODIUM 40 MG VIAL IV SCH (08:08)
[2022-03-12] MEDS: PROTEIN SUPPLEMENT (PROSTAT) 30 ML LIQUID PO SCH ×2 (08:09→16:12)
[2022-03-12] MEDS: NEPRO (VANILLA) 237 ML CAN PO SCH (08:09)
[2022-03-12] MEDS: ALPRAZOLAM 0.5 MG TABLET PO SCH ×2 (08:09→16:12)
[2022-03-12] MEDS: DEXTROSE 5% IV SCH (08:58)
[2022-03-12] MEDS: CEFTAROLINE FOSAMIL ACETATE IV SCH (08:58)
[2022-03-12] MEDS ORDERED: ALPR1TAB7 PO (11:12)
[2022-03-12] MEDS ORDERED: DAPT500V2 IV (11:12)
[2022-03-12] MEDS ORDERED: CEFT600V IV (11:12)
[2022-03-12] MEDS ORDERED: MIDO5TAB4 PO (11:12)
[2022-03-12 11:27] LABS: NEUTROPHILS % (MANUAL) 87 % (42-75)
[2022-03-12 11:28] LABS: EOSINOPHILS % (MANUAL) 3 % (0-8); LYMPHOCYTES % (MANUAL) 5 % (20-40); MONOCYTES % (MANUAL) 5 % (2-10)
[2022-03-12 11:40] VITALS: BP 109/36
--- NOTE | 2022-03-12 14:10 | NUR ---
Patient's blood pressure 130/41. Did not administer medication.
--- NOTE | 2022-03-12 14:42 | NUR ---
Patient to be discharged to [facility]. Report given to Emy VEE. Scheduled cone picker at 1500.
[2022-03-12] MEDS: INSULIN REGULAR, HUMAN 300 UNIT/3 ML VIAL SQ PRN (16:19)
--- NOTE | 2022-03-12 17:15 | NUR ---
Patients blood pressure currently 124/39. EMT unwilling to take patient due to parameters and patient's diastolic being too low. Spoke to Dr. Montalvo for permission to administer Midodrine that is due at [address] Montalvo approved. Will administer medication.
[2022-03-12 17:17] VITALS: BP 124/39
--- NOTE | 2022-03-12 18:04 | NUR ---
Patient's blood pressure now within normal limits. EMT willing to take patient for transfer. ID band removed. IV site kept in place due to patient receiving IV medications at facility.
--- NOTE | 2022-03-12 18:17 | NUR ---
Patient discharged from facility at 1814.
== END 2022-03-12 18:15 | DRG 871 ==
LOC: ER 11:02 → TRANSITION 14:26 → TELE3 02-26 20:54 → MEDSURG3 03-10 11:19
PROVIDERS: ADMIT Registered Nurse; ATTEND Internal Medicine
PROC: 02HV33Z Insertion of Infusion Device into Superior Vena Cava, Percutaneous Approach (ICD-10-PCS; principal; 2022-02-25)
PROC: B548ZZA Ultrasonography of Superior Vena Cava, Guidance (ICD-10-PCS; 2022-02-25)
PROC: 30233N1 Transfusion of Nonautologous Red Blood Cells into Peripheral Vein, Percutaneous Approach (ICD-10-PCS; 2022-02-26)
PROC: 5A1D70Z Performance of Urinary Filtration, Intermittent, Less than 6 Hours Per Day (ICD-10-PCS; 2022-02-26)
DX: A41.9 Sepsis, unspecified organism (principal); E43 Unspecified severe protein-calorie malnutrition; G92.8 Other toxic encephalopathy; J96.21 Acute and chronic respiratory failure with hypoxia; R65.21 Severe sepsis with septic shock; I50.33 Acute on chronic diastolic (congestive) heart failure; J69.0 Pneumonitis due to inhalation of food and vomit; N18.6 End stage renal disease; I33.0 Acute and subacute infective endocarditis; D68.59 Other primary thrombophilia; E87.1 Hypo-osmolality and hyponatremia; I13.2 Hypertensive heart and chronic kidney disease with heart failure and with stage 5 chronic kidney disease, or end stage renal disease; D68.69 Other thrombophilia; Z16.11 Resistance to penicillins; I48.20 Chronic atrial fibrillation, unspecified; D63.1 Anemia in chronic kidney disease; D69.6 Thrombocytopenia, unspecified; E11.22 Type 2 diabetes mellitus with diabetic chronic kidney disease; E88.09 Other disorders of plasma-protein metabolism, not elsewhere classified; Z99.2 Dependence on renal dialysis; R13.10 Dysphagia, unspecified; I25.10 Atherosclerotic heart disease of native coronary artery without angina pectoris; Z95.0 Presence of cardiac pacemaker; Z95.1 Presence of aortocoronary bypass graft; R74.8 Abnormal levels of other serum enzymes; Z74.09 Other reduced mobility; D50.9 Iron deficiency anemia, unspecified; D63.8 Anemia in other chronic diseases classified elsewhere; Z68.26 Body mass index [BMI] 26.0-26.9, adult; B95.62 Methicillin resistant Staphylococcus aureus infection as the cause of diseases classified elsewhere; I07.1 Rheumatic tricuspid insufficiency; R74.01 Elevation of levels of liver transaminase levels; Z66 Do not resuscitate; I69.328 Other speech and language deficits following cerebral infarction
CPT/HCPCS: 36415; 36569; 36600; 70030-TC; 71045; 83605; 83735; 84100; 84443; 84484; 85025; 85730; 86706; 86803; 86850; 86900; 86901; 86920; 87040; 87077; 87086; 87340; 87400; 87806; 90937; 93005; 93307; A4663; A6209; A6213; A9150; C9113; G0378; J0878; J0885; J2543; J3370; J3490; J7040; J7050; P9016; P9047